=== PATIENT | female | born 1960 | race Hispanic/Latino ===

== ENCOUNTER 2019-06-26 06:05 | Day surgery (SDC) | payer BC ==
[2019-06-26] MEDS ORDERED: Bacitracin Zinc Ointment 30 gm TUBE ONE (06:33)
[2019-06-26] MEDS ORDERED: Bupivacaine PF 0.5% 30 ML VIAL ONE (06:33)
[2019-06-26 06:43] LABS: #Eosinphils 0.3 thou/uL (0.0-0.7); #Lymphocytes 1.8 thou/uL (1.20-3.40); #Monocytes 0.6 thou/uL (0.11-0.59); #Neutrophils 3.4 thou/uL (1.40-6.50); %Basophils 0.7 % (0.0-1.0); %Eosinophils 4.6 % (0.0-10.0); %Lymphocytes 29.8 % (21.0-51.0); %Neutrophils 55.8 % (42.0-75.0); Hemoglobin 14.5 g/dL (12.0-16.0); Mean Corpuscular HGB CONC 33.7 g/dL (32.0-36.0); Mean Corpuscular Hemoglobin 31.4 pg (27.0-31.0); Mean Corpuscular Volume 93.1 fL (78.0-98.0); Mean Platelet Volume 6.3 fL (7.4-10.4); Platelet Count 258 thou/uL (130-400); RBC Distribution Width 12.2 % (11.5-14.5); Red Blood Cell (RBC) Count 4.62 mill/uL (4.20-5.40); White Blood Cell (WBC) Count 6.1 thou/uL (4.8-10.8)
[2019-06-26] MEDS ORDERED: Fentanyl 100 MCG/2 ML VIAL ONE (06:47)
[2019-06-26] MEDS ORDERED: Lidocaine 2% Jelly 5 ML TUBE ONE (06:47)
[2019-06-26] MEDS ORDERED: Succinylcholine Chloride 20 MG/ML 10 ml SYRINGE FS ONE (09:05)
[2019-06-26] MEDS ORDERED: Ketorolac Tromethamine 30 MG/ML VIAL ONE (09:05)
[2019-06-26] MEDS ORDERED: Dexamethasone 20 MG/5 ML VIAL ONE (09:05)
[2019-06-26] MEDS ORDERED: Lidocaine 1% PF 5 ML VIAL ONE (09:05)
[2019-06-26] MEDS ORDERED: EPHEDRINE 25 MG/5 ML SYRINGE ONE (09:05)
[2019-06-26] MEDS ORDERED: Rocuronium Bromide 10 MG/ML (10ML VIAL) ONE (09:05)
[2019-06-26] MEDS ORDERED: PROPOFOL 200 MG/20 ML VIAL ONE (09:05)
[2019-06-26] MEDS ORDERED: Ondansetron PF 4 MG/2 ML Vial ONE (09:05)
[2019-06-26] MEDS ORDERED: Glycopyrrolate 0.2 MG/ML 5 ML SYRINGE ONE (09:05)
--- NOTE | 2019-06-26 11:47 | OP ---
DATE OF PROCEDURE: 06/26/2019 PREOPERATIVE DIAGNOSES: 1. 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 2. Displaced mallet fracture, approximately 45% of the articular surface. POSTOPERATIVE DIAGNOSES: 1. 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 2. Displaced mallet fracture, approximately 45% of the articular surface. 3. Subluxed palmarly distal interphalangeal joint. FINDINGS: The fracture was oblique, with most of the bone being on the ulnar half and most of the cartilage surface being on the radial half. PROCEDURES PERFORMED: 1. Extensor tenolysis, right small finger. 2. Open reduction and internal fixation of distal phalanx fracture with arthrotomy using multiple K-wires. 3. Pinning with open reduction, subluxed distal interphalangeal joint. SPECIMEN REMOVED: None. TOURNIQUET TIME: 87 minutes. ESTIMATED BLOOD LOSS: 10 mL. C-arm use yet. DESCRIPTION OF PROCEDURE: The patient was found in clinic to have a subluxed joint, greater than 40% involvement of articular surface with a small bony fragment in clinic. Because the joint was subluxed, the fracture if waited more than 30 days would be much more difficult and challenging than already was to treat, surgical intervention was ascertained in a somewhat not urgent fashion. The patient had the limb prepped and draped. Time-out was done appropriately. We then gave a total of 50 mL of 0.5% metacarpophalangeal joint level block. We then exsanguinated the limb and inflated tourniquet to 250 mmHg pressure. Standard H-type incision was made. We exposed the extensor mechanism. The extensor mechanism showed some adherence. We then brought the C-arm to the field, found a 0.1 mm distal to the fracture and then made an incision in a v-shaped following the shape of the pattern of the fracture. We exposed the subchondral surface and saw the joint was subluxed. The distal end of the fracture had all kind of callus and we had to debride this with a K-wire. We did minimal debridement on the fragment itself and it had very little callus. We then attempted to reduce, but had trouble obtaining the length, so we had performed an extensor tenolysis approximately 2 cm proximal to the fracture. Then, the fracture could reach. We read a heavy Prolene suture in the tendon, used this to help with reduction, and then pinned the joint moving it from subluxed position palmarly to nearly anatomical in the sagittal frontal plane. We now reduced the fragment, but had to be careful because the most of the bony portion was on the ulnar side while the radial side had most the articular surface. This was an oblique pattern. We then used one K-wire to establish the length and angled this very acutely. Then, we used 2 K-wires, all 0.35, to maintain reduction. We closed the gap in the frontal sagittal plane. We then repaired the extensor mechanism with interrupted heavy Prolene suture [id number] pattern. Tourniquet was deflated. The wires were cut below the skin for the joint reduction wire and with only a small 0.5 mm protruding from the primary bony fracture of the 3 K-wires. The patient then left the operating room with hemostasis obtained and closed the skin with interrupted 5-0 nylon. A short-arm splint was applied. This with the MP joints at 70 degrees flexion PIP, DIP, and zero extension. Digit was pink. Job ID: [id number]
--- NOTE | 2019-06-26 14:22 | RAD ---
RIGHT FINGER FIVE VIEW: 06/26/19 HISTORY: ORIF. COMPARISON: Radiograph 06/21/19. FINDINGS: There has been pin placement through the distal phalanx small finger. IMPRESSION: Fluoroscopy for surgical purposes. POS: HOME
== END 2019-06-26 11:49 | disposition home or self-care (01) ==
LOC: SDC 06:05
PROVIDERS: ATTEND Orthopaedic Surgery Hand Surgery
PROC: 0LN70ZZ Release Right Hand Tendon, Open Approach (ICD-10-PCS; principal; 2019-06-26)
PROC: 0PST04Z Reposition Right Finger Phalanx with Internal Fixation Device, Open Approach (ICD-10-PCS; principal; 2019-06-26)
DX: S63.246A Subluxation of distal interphalangeal joint of right little finger, initial encounter (principal); M20.011 Mallet finger of right finger(s); M24.541 Contracture, right hand; I10 Essential (primary) hypertension; R73.03 Prediabetes; E78.00 Pure hypercholesterolemia, unspecified; E78.5 Hyperlipidemia, unspecified; Z79.899 Other long term (current) drug therapy; Z88.6 Allergy status to analgesic agent
CPT/HCPCS: 36415; 76000; 85025; J0690; J1100; J1885; J2001; J2405; J2704; J3010; J3490; S0020

== ENCOUNTER 2020-01-03 08:48 | Outpatient (CLI) | payer BC, OTHER ==
[2020-01-03 18:24] LABS: #Eosinphils 0.1 thou/uL (0.0-0.7); #Lymphocytes 2.7 thou/uL (1.20-3.40); #Monocytes 0.4 thou/uL (0.11-0.59); #Neutrophils 3.9 thou/uL (1.40-6.50); %Basophils 0.4 % (0.0-1.0); %Eosinophils 1.4 % (0.0-10.0); %Lymphocytes 37.8 % (21.0-51.0); %Monocytes 5.7 % (0.0-10.0); %Neutrophils 54.8 % (42.0-75.0); Hemoglobin 14.1 g/dL (12.0-16.0); Mean Corpuscular HGB CONC 32.8 g/dL (32.0-36.0); Mean Corpuscular Hemoglobin 30.4 pg (27.0-31.0); Mean Corpuscular Volume 92.8 fL (78.0-98.0); Mean Platelet Volume 6.7 fL (7.4-10.4); Platelet Count 312 thou/uL (130-400); RBC Distribution Width 11.5 % (11.5-14.5); Red Blood Cell (RBC) Count 4.65 mill/uL (4.20-5.40); White Blood Cell (WBC) Count 7.1 thou/uL (4.8-10.8)
[2020-01-04 12:34] LABS: SARS-CoV-2 MS2 Positive; SARS-CoV-2 N Gene Negative; SARS-CoV-2 S Gene Negative; SARS-CoV-2 by NAA Not Detected (NotDetected); SARS-CoV-2 orf1ab Negative
== END 2020-01-03 08:49 | disposition home or self-care (01) ==
LOC: LABBT 08:48
PROVIDERS: ATTEND Orthopaedic Surgery Hand Surgery
DX: Z01.812 Encounter for preprocedural laboratory examination (principal); T84.84XD Pain due to internal orthopedic prosthetic devices, implants and grafts, subsequent encounter; Z20.828 Contact with and (suspected) exposure to other viral communicable diseases
CPT/HCPCS: 85025; 87635; U0003

== ENCOUNTER 2020-01-08 06:34 | Day surgery (SDC) | payer BC ==
[2020-01-08] MEDS ORDERED: Fentanyl 100 MCG/2 ML VIAL ONE (08:12)
[2020-01-08] MEDS ORDERED: Bupivacaine PF 0.5% 30 ML VIAL ONE (08:13)
[2020-01-08] MEDS ORDERED: Sodium Chloride 0.9% 10 ML ONE (08:14)
[2020-01-08] MEDS ORDERED: Bacitracin Zinc Ointment 30 gm TUBE ONE (08:14)
[2020-01-08] MEDS ORDERED: Thrombin 5000 UNITS/5 ML VIAL ONE (08:14)
[2020-01-08] MEDS ORDERED: EPHEDRINE 25 MG/5 ML SYRINGE ONE (09:12)
[2020-01-08] MEDS ORDERED: PHENYLEPHRINE-NS 100 MCG/ML 10 ML SYRINGE ONE (09:12)
[2020-01-08] MEDS ORDERED: Dexamethasone 20 MG/5 ML VIAL ONE (09:12)
[2020-01-08] MEDS ORDERED: PROPOFOL 200 MG/20 ML VIAL ONE (09:12)
[2020-01-08] MEDS ORDERED: Ketorolac Tromethamine 30 MG/ML VIAL ONE (09:12)
[2020-01-08] MEDS ORDERED: Lidocaine 1% PF 5 ML VIAL ONE (09:12)
[2020-01-08] MEDS ORDERED: Ondansetron PF 4 MG/2 ML Vial ONE (09:12)
--- NOTE | 2020-01-08 13:05 | RAD ---
Intraoperative imaging of the right fifth finger: 01/08/2020 COMPARISON: 06/26/2019 HISTORY: Hardware removal FINDINGS: Coned down frontal and lateral imaging of the fifth finger provided. Osseous detail is limi dom secondary to technique. There is evidence of a fracture involving the dorsal base of the fifth distal phalanx, not well assessed on this exam. Percutaneous pins present on prior imaging have been removed. No evidence for dislocation. IMPRESSION: Intraoperative imaging as above.
--- NOTE | 2020-01-10 09:58 | OP ---
DATE OF PROCEDURE: 01/08/2020 PREOPERATIVE DIAGNOSES: Right small finger painful deep implant, two deep K-wires with intact extensor mechanism as well as bony fragment after a complex mallet procedure almost 6 months ago. POSTOPERATIVE DIAGNOSES: Right small finger painful deep implant, two deep K-wires with intact extensor mechanism as well as bony fragment after a complex mallet procedure almost 6 months ago. FINDINGS: After the wire was removed, the fragment did not move and appeared to have a union with the primary shaft, congruent joint in the frontal sagittal plane with pin removals. PROCEDURES PERFORMED: 1. Right ring finger distal phalanx painful deep implant removal. 2. C-arm supervision. IMPLANTS REMOVED: Two tight deep K-wires. ESTIMATED BLOOD LOSS: Less than 5 mL. TOURNIQUET TIME: 27 minutes. INDICATIONS FOR PROCEDURE: The patient had a high-grade bony mallet repair with internal fixation and had pin removed from its joint approximately 6 months ago, and now she complained of marked tenderness over the 2 K-wires still remaining. DESCRIPTION OF PROCEDURE: After successful general endotracheal anesthesia, the limb was prepped and draped. Time-out was done appropriately. We irrigated the limb. 12 mL of 0.5% Marcaine block with no epinephrine at the metacarpophalangeal joint level of the small finger. We then brought the C-arm to the field, identified the masses and then we noticed there were two blue Prolene sutures protruding. They were difficult to remove, so we made a 5 mm incision, carried through skin and subcutaneous tissue, identified the wires on the C-arm, saw them and clinically removed them with small clamp. They were taken from the field. Then, we saw two blue sutures that were subcutaneously visible and we removed both of them. Job ID: [id number]
== END 2020-01-08 11:02 | disposition home or self-care (01) ==
LOC: SDC 06:34
PROVIDERS: ATTEND Orthopaedic Surgery Hand Surgery
PROC: 0RPW0JZ Removal of Synthetic Substitute from Right Finger Phalangeal Joint, Open Approach (ICD-10-PCS; principal; 2020-01-08)
DX: T84.84XA Pain due to internal orthopedic prosthetic devices, implants and grafts, initial encounter (principal); E78.00 Pure hypercholesterolemia, unspecified; I10 Essential (primary) hypertension; R73.03 Prediabetes; E78.5 Hyperlipidemia, unspecified; Z79.899 Other long term (current) drug therapy; Z88.6 Allergy status to analgesic agent
CPT/HCPCS: 76000; J0690; J1100; J1885; J2405; J2704; J3010; J3490; S0020

== ENCOUNTER 2020-06-24 15:16 | Outpatient (CLI) | payer BC ==
[2020-06-24 16:38] LABS: Bilirubin Neg (Negative); Blood, Urine 10 (Negative); Glucose, Urine (Dipstick) 250 mg/dL (Negative); Ketone, Urine Negative (Negative); Leukocyte 25 (Negative); Nitrite Negative (Negative); Protein, Urine (Dipstick) Negative (Neg-Trace); Specific Gravity, Urine 1.015 (1.002-1.036); Urobilinogen Normal mg/dL (Less than 2)
[2020-06-24 16:45] LABS: #Eosinphils 0.1 10x3/uL (0.0-0.5); #Monocytes 0.3 10x3/uL (0.0-1.1); #Neutrophils 3.5 10x3/uL (1.5-8.4); %Basophils 0.7 % (0.0-2.0); %Eosinophils 0.8 % (0.0-6.0); %Lymphocytes 35.7 % (18.0-47.0); %Monocytes 4.5 % (0.0-10.0); %Neutrophils 57.8 % (40.0-75.0); Hemoglobin 14.5 g/dL (12.0-15.5); Mean Corpuscular HGB CONC 32.4 g/dL (32.0-36.0); Mean Corpuscular Hemoglobin 29.5 pg (27.0-33.0); Mean Platelet Volume 9.3 fl (7.4-10.4); Platelet Count 294 10x3/uL (150-450); RBC Distribution Width 12.6 % (11.5-14.5); Red Blood Cell (RBC) Count 4.91 10x6/uL (3.90-5.03)
[2020-06-24 16:47] LABS: Clarity Clear (Clear)
[2020-06-24 19:00] LABS: Bacteria/HPF None Seen HPF (None Seen); RBC/HPF 0-3 HPF (0-3); Squamous Epithelial 0-3 HPF (0-3); WBC/HPF 0-3 HPF (0-3)
[2020-06-25 06:02] LABS: SARS-CoV-2 PCR by NAA Not Detected (NotDetected)
== END 2020-06-24 15:17 | disposition home or self-care (01) ==
LOC: LABBT 15:16
PROVIDERS: ATTEND Orthopaedic Surgery Hand Surgery
DX: Z01.818 Encounter for other preprocedural examination (principal); Z20.822 Contact with and (suspected) exposure to COVID-19; S62.606A Fracture of unspecified phalanx of right little finger, initial encounter for closed fracture; M24.041 Loose body in right finger joint(s)
CPT/HCPCS: 81001; 85025; 87635; 93005; 93010; U0003; U0005

== ENCOUNTER 2020-06-27 06:30 | Day surgery (SDC) | payer BC ==
[2020-06-26 09:50] VITALS: BMI 26.2
[2020-06-27] MEDS ORDERED: Thrombin 5000 UNITS/5 ML VIAL ONE (09:59)
[2020-06-27] MEDS ORDERED: Bupivacaine PF 0.5% 30 ML VIAL ONE (09:59)
[2020-06-27] MEDS ORDERED: Midazolam HCl 2 mg/2 ml Vial ONE (09:59)
[2020-06-27] MEDS ORDERED: Bacitracin Zinc Ointment 30 gm TUBE ONE (09:59)
[2020-06-27] MEDS ORDERED: Fentanyl 100 MCG/2 ML VIAL ONE (10:03)
[2020-06-27] MEDS ORDERED: ePHEDrine Sulfate 50 MG/10 ML VIAL ONE (10:17)
[2020-06-27] MEDS ORDERED: Ketorolac Tromethamine 30 MG/ML VIAL ONE ×2 (10:17→11:56)
[2020-06-27] MEDS ORDERED: Ondansetron PF 4 MG/2 ML Vial ONE (10:17)
[2020-06-27] MEDS ORDERED: Dexamethasone 20 MG/5 ML VIAL ONE (10:17)
[2020-06-27] MEDS ORDERED: PHENYLEPHRINE-NS 100 MCG/ML 10 ML SYRINGE ONE (10:17)
== END 2020-06-27 13:08 | disposition home or self-care (01) ==
LOC: SDC 06:30
PROVIDERS: ATTEND Orthopaedic Surgery Hand Surgery
PROC: 0PT Upper Bones, Resection (ICD-10-PCS; principal; 2020-06-27)
DX: M25.742 Osteophyte, left hand (principal); M20.011 Mallet finger of right finger(s); I10 Essential (primary) hypertension; R73.03 Prediabetes; E78.00 Pure hypercholesterolemia, unspecified; E78.5 Hyperlipidemia, unspecified; Z88.6 Allergy status to analgesic agent; Z79.899 Other long term (current) drug therapy
CPT/HCPCS: 76000; 88304; J0690; J1100; J1885; J2250; J2405; J3010; J3490; S0020

== ENCOUNTER 2021-12-24 10:47 | Emergency (ER) | payer BC | END 2021-12-24 13:09 | disposition home or self-care (01) | LOC: ERS 10:47 | DX: S82.042A Displaced comminuted fracture of left patella, initial encounter for closed fracture (principal); W19.XXXA Unspecified fall, initial encounter; Y99.0 Civilian activity done for income or pay ==

== ENCOUNTER 2024-12-09 12:03 | Emergency (ER) | payer BC ==
[2024-12-09 13:51] LABS: #Basophils 0.04 10x3/uL (0.0-0.2); #Eosinophils 0.03 10x3/uL (0.0-0.7); #Monocytes 0.75 10x3/uL (0.11-0.59); #Neutrophils 8.76 10x3/uL (1.40-6.50); %Basophils 0.3 % (0.0-1.0); %Eosinophils 0.3 % (0.0-10.0); %Lymphocytes 17.4 % (21.0-51.0); %Monocytes 6.4 % (0.0-10.0); %Neutrophils 75.3 % (42.0-75.0); Hematocrit 42.3 % (36.0-47.0); Hemoglobin 13.7 g/dL (12.0-16.0); Mean Corpuscular Hemoglobin 29.1 pg (27.0-31.0); Mean Corpuscular Volume 90.0 fL (78.0-98.0); Platelet Count 279 10x3/uL (130-400); Red Blood Cell (RBC) Count 4.70 mill/uL (4.20-5.40); White Blood Cell (WBC) Count 11.63 10x3/uL (4.8-10.8)
[2024-12-09] MEDS ORDERED: Ketorolac Tromethamine 30 MG (1 mL) VIAL ONE (14:24)
[2024-12-09] MEDS ORDERED: Acetaminophen 500 MG TAB ONE (14:24)
[2024-12-09] MEDS ORDERED: Ondansetron PF 4 MG/2 ML Vial ONE (14:24)
[2024-12-09 14:28] LABS: ALT (SGPT) 16 U/L (Less than 34); AST (SGOT) 18 U/L (11-34); Albumin 4.0 g/dL (3.1-4.5); Alkaline Phosphatase 58 U/L (40-110); Anion Gap 15 mmol/L (10-20); BUN (Urea Nitrogen) 18 mg/dL (9.8-20.1); Bilirubin, Total 0.4 mg/dL (0.3-1.2); Calc. Creatinine Clearance 0 mL/min (70-130); Calcium 9.1 mg/dL (7.8-10.44); Carbon Dioxide 23 mmol/L (23-31); Chloride 107 mmol/L (98-107); Globulin 2.9 g/dL (2.4-3.5); Glucose 106 mg/dL (80-115); Potassium 3.8 mmol/L (3.5-5.1); Sodium 141 mmol/L (136-145)
== END 2024-12-09 15:46 | disposition home or self-care (01) ==
LOC: ERS 12:03
DX: M54.6 Pain in thoracic spine (principal); M79.602 Pain in left arm; I10 Essential (primary) hypertension
CPT/HCPCS: 71045; 80053; 84484; 85025; 93005; 96374; 96375; J1885

== ENCOUNTER 2024-12-12 03:14 | Inpatient (IN) | payer BC ==
[2024-12-12] MEDS ORDERED: Methocarbamol 500 MG TAB ONE (03:45)
[2024-12-12] MEDS ORDERED: Ibuprofen 200 MG TAB ONE (03:48)
[2024-12-12 03:49] LABS: #Basophils 0.04 10x3/uL (0.0-0.2); #Eosinophils Less than 0.03 10x3/uL (0.0-0.7); #Monocytes 1.16 10x3/uL (0.11-0.59); #Neutrophils 11.13 10x3/uL (1.40-6.50); %Basophils 0.3 % (0.0-1.0); %Eosinophils 0.0 % (0.0-10.0); %Lymphocytes 5.6 % (21.0-51.0); %Monocytes 8.8 % (0.0-10.0); %Neutrophils 84.6 % (42.0-75.0); Hematocrit 42.6 % (36.0-47.0); Hemoglobin 13.9 g/dL (12.0-16.0); Mean Corpuscular Hemoglobin 29.0 pg (27.0-31.0); Mean Corpuscular Volume 88.8 fL (78.0-98.0); Platelet Count 240 10x3/uL (130-400); Red Blood Cell (RBC) Count 4.80 mill/uL (4.20-5.40); White Blood Cell (WBC) Count 13.15 10x3/uL (4.8-10.8)
[2024-12-12] MEDS ORDERED: cefTRIAXone (ROCEPHIN) 2 GM VIAL ONE (04:00)
[2024-12-12 04:12] LABS: ALT (SGPT) 20 U/L (Less than 34); AST (SGOT) 23 U/L (11-34); Albumin 3.7 g/dL (3.1-4.5); Alkaline Phosphatase 94 U/L (40-110); Anion Gap 19 mmol/L (10-20); BUN (Urea Nitrogen) 27 mg/dL (9.8-20.1); Bilirubin, Total 0.2 mg/dL (0.3-1.2); Calc. Creatinine Clearance 0 mL/min (70-130); Calcium 9.6 mg/dL (7.8-10.44); Carbon Dioxide 21 mmol/L (23-31); Chloride 105 mmol/L (98-107); Globulin 3.2 g/dL (2.4-3.5); Glucose 150 mg/dL (80-115); Lipase 14 U/L (8-78); Magnesium 1.7 mg/dL (1.6-2.6); Potassium 3.6 mmol/L (3.5-5.1); Sodium 141 mmol/L (136-145)
[2024-12-12 05:27] LABS: CAUTI Indications for Culture Dysuria,urgency,freq; Glucose, Urine (Dipstick) Normal (Negative); Leukocyte 500 Leu/uL (Negative); Protein, Urine (Dipstick) 30 mg/dL (Neg-Trace); Specific Gravity, Urine 1.024 (1.002-1.036); WBC/HPF Greater than 50 HPF (0-3)
[2024-12-12 05:34] LABS: Bacteria/HPF 1+ HPF (None Seen)
[2024-12-12 05:35] LABS: Urine Culture Reflex Yes Yes
[2024-12-12] MEDS ORDERED: Ketorolac Tromethamine 30 MG (1 mL) VIAL ONE (08:16)
[2024-12-12] MEDS ORDERED: Enoxaparin 40 MG (0.4 mL) SYRINGE ONE (08:17)
[2024-12-12] MEDS ORDERED: Famotidine 20 MG TAB ONE (08:17)
[2024-12-12] MEDS: Ketorolac Tromethamine 30 MG (1 mL) VIAL IVP PRN (08:23)
[2024-12-12] MEDS: Famotidine 20 MG TAB PO SCH (08:23)
[2024-12-12] MEDS: Enoxaparin 40 MG (0.4 mL) SYRINGE SC SCH (08:23)
[2024-12-12] MEDS ORDERED: Acetaminophen 325 MG TAB ONE (13:00)
[2024-12-12] MEDS: Acetaminophen 325 MG TAB PO PRN (13:02)
[2024-12-12] MEDS ORDERED: Iopamidol-370 76% 500 ML MDV (1 ML CHARGE) ONE (15:43)
[2024-12-12 20:01] VITALS: BMI 30.2
[2024-12-13 04:57] LABS: #Basophils 0.03 10x3/uL (0.0-0.2); #Eosinophils 0.07 10x3/uL (0.0-0.7); #Monocytes 1.12 10x3/uL (0.11-0.59); #Neutrophils 5.87 10x3/uL (1.40-6.50); %Basophils 0.3 % (0.0-1.0); %Eosinophils 0.8 % (0.0-10.0); %Lymphocytes 21.5 % (21.0-51.0); %Monocytes 12.3 % (0.0-10.0); %Neutrophils 64.7 % (42.0-75.0); Hematocrit 42.0 % (36.0-47.0); Hemoglobin 13.5 g/dL (12.0-16.0); Mean Corpuscular Hemoglobin 29.0 pg (27.0-31.0); Mean Corpuscular Volume 90.3 fL (78.0-98.0); Platelet Count 230 10x3/uL (130-400); Red Blood Cell (RBC) Count 4.65 mill/uL (4.20-5.40); White Blood Cell (WBC) Count 9.08 10x3/uL (4.8-10.8)
[2024-12-13 05:06] LABS: Anion Gap 14 mmol/L (10-20); BUN (Urea Nitrogen) 14 mg/dL (9.8-20.1); Calc. Creatinine Clearance 112 mL/min (70-130); Calcium 9.1 mg/dL (7.8-10.44); Carbon Dioxide 22 mmol/L (23-31); Chloride 107 mmol/L (98-107); Glucose 115 mg/dL (80-115); Potassium 4.0 mmol/L (3.5-5.1); Sodium 139 mmol/L (136-145)
[2024-12-13] MEDS: cefTRIAXone\\ROCEPHIN 2 GM in Sodium Chloride 0.9% 100 ML IVPB SCH (05:19)
[2024-12-13] MEDS: Methocarbamol 500 MG TAB PO PRN (09:48)
[2024-12-14] MEDS: Fioricet 325/50/40 mg Tablet PO SCH (04:27)
[2024-12-14] MEDS: Fioricet 325/50/40 mg Tablet PO PRN (11:41)
[2024-12-14] MEDS: Ketorolac Tromethamine 30 MG (1 mL) VIAL IVP PRN (19:54)
[2024-12-15] MEDS: cefTRIAXone (ROCEPHIN) 2 GM VIAL ONE (03:40)
[2024-12-16 05:13] LABS: #Basophils 0.03 10x3/uL (0.0-0.2); #Eosinophils 0.09 10x3/uL (0.0-0.7); #Monocytes 0.57 10x3/uL (0.11-0.59); #Neutrophils 3.17 10x3/uL (1.40-6.50); %Basophils 0.5 % (0.0-1.0); %Eosinophils 1.4 % (0.0-10.0); %Lymphocytes 38.5 % (21.0-51.0); %Monocytes 9.0 % (0.0-10.0); %Neutrophils 50.3 % (42.0-75.0); Hematocrit 41.0 % (36.0-47.0); Hemoglobin 13.0 g/dL (12.0-16.0); Mean Corpuscular Hemoglobin 28.9 pg (27.0-31.0); Mean Corpuscular Volume 91.1 fL (78.0-98.0); Platelet Count 275 10x3/uL (130-400); Red Blood Cell (RBC) Count 4.50 mill/uL (4.20-5.40); White Blood Cell (WBC) Count 6.31 10x3/uL (4.8-10.8)
[2024-12-16 05:41] LABS: Anion Gap 13 mmol/L (10-20); BUN (Urea Nitrogen) 25 mg/dL (9.8-20.1); Calc. Creatinine Clearance 100 mL/min (70-130); Calcium 9.0 mg/dL (7.8-10.44); Carbon Dioxide 22 mmol/L (23-31); Chloride 110 mmol/L (98-107); Glucose 107 mg/dL (80-115); Potassium 4.3 mmol/L (3.5-5.1); Sodium 141 mmol/L (136-145)
[2024-12-16] MEDS: Ketorolac Tromethamine 30 MG (1 mL) VIAL IVP SCH (15:37)
[2024-12-17 04:25] LABS: #Basophils 0.04 10x3/uL (0.0-0.2); #Eosinophils 0.12 10x3/uL (0.0-0.7); #Monocytes 0.47 10x3/uL (0.11-0.59); #Neutrophils 4.21 10x3/uL (1.40-6.50); %Basophils 0.5 % (0.0-1.0); %Eosinophils 1.6 % (0.0-10.0); %Lymphocytes 35.6 % (21.0-51.0); %Monocytes 6.2 % (0.0-10.0); %Neutrophils 55.7 % (42.0-75.0); Hematocrit 42.9 % (36.0-47.0); Hemoglobin 13.6 g/dL (12.0-16.0); Mean Corpuscular Hemoglobin 29.2 pg (27.0-31.0); Mean Corpuscular Volume 92.1 fL (78.0-98.0); Platelet Count 301 10x3/uL (130-400); Red Blood Cell (RBC) Count 4.66 mill/uL (4.20-5.40); White Blood Cell (WBC) Count 7.56 10x3/uL (4.8-10.8)
[2024-12-17 04:36] LABS: Anion Gap 16 mmol/L (10-20); BUN (Urea Nitrogen) 23 mg/dL (9.8-20.1); Calc. Creatinine Clearance 103 mL/min (70-130); Calcium 9.6 mg/dL (7.8-10.44); Carbon Dioxide 23 mmol/L (23-31); Chloride 107 mmol/L (98-107); Glucose 107 mg/dL (80-115); Potassium 4.5 mmol/L (3.5-5.1); Sodium 141 mmol/L (136-145)
[2024-12-17] MEDS: Senokot S 8.6-50 MG TAB PO PRN (09:14)
[2024-12-17 14:27] VITALS: BP 146/79; TEMP 99
== END 2024-12-17 14:56 | disposition home or self-care (01) | DRG 872 ==
LOC: ERS 03:14 → ERHOLD 06:30 → 2NO 17:48 → SURG A 12-14 15:05
PROVIDERS: ADMIT Internal Medicine; ATTEND Internal Medicine
DX: A41.51 Sepsis due to Escherichia coli [E. coli] (principal); E87.20 Acidosis, unspecified; N39.0 Urinary tract infection, site not specified; I10 Essential (primary) hypertension; E78.5 Hyperlipidemia, unspecified; M25.512 Pain in left shoulder; E04.1 Nontoxic single thyroid nodule; M48.02 Spinal stenosis, cervical region; Z88.6 Allergy status to analgesic agent; Z90.710 Acquired absence of both cervix and uterus; Z98.890 Other specified postprocedural states; Z79.899 Other long term (current) drug therapy
CPT/HCPCS: 36415; 71275; 72141; 72146; 74177; 80048; 80053; 81001; 83605; 83690; 83735; 84484; 85025; 87040; 87077; 87086; 87149; 87186; 87428; 93005; 96365; 96366; J0696; J1650; J1885; J7120; Q9967